=== PATIENT | female | born 1940 | race Caucasian/White ===

== ENCOUNTER 2021-03-15 13:06 | Inpatient (IN) | payer MEDICARE, OTHER, SELFPAY ==
[2021-03-15] VITALS (9 sets, daily range): BP systolic 111–163; BP diastolic 55–85; PULSE 59–88; RESP 15–22; TEMP 36.7–37; O2SAT 94–98; BMI 28.8
--- NOTE | 2021-03-15 13:14 | XRR_ITS ---
PROCEDURE INFORMATION: Exam: XR Right Femur Exam date and time: 03/15/2021 1:14 PM Age: 80 years old Clinical indication: Pain and injury or trauma; Fall; Blunt trauma; Hip and thigh or upper leg; Right TECHNIQUE: Imaging protocol: XR Right femur. Views: 2 views. COMPARISON: No relevant prior studies available. FINDINGS: Bones/joints: There is a comminuted impacted right intertrochanteric femur fracture with varus deformity. Soft tissues: Unremarkable. XR/XR femur RT min 2V* [id number] IMPRESSION: Comminuted intertrochanteric right femur fracture. Radiation Dose CTDIVOL = (mGy): DLP = (mGy-cm)
--- NOTE | 2021-03-15 13:14 | XRR_ITS ---
PROCEDURE INFORMATION: Exam: XR Right Hip Exam date and time: 03/15/2021 1:14 PM Age: 80 years old Clinical indication: Pain and injury or trauma; Fall; Blunt trauma (contusions or hematomas); Hip pain; Right hip; Injury date: 03/15/21; Patient HX: Fell today and landed on RT hip; PT unable to straighten leg; Additional info: Pain, fall TECHNIQUE: Imaging protocol: XR Right hip. Views: 1 view hip with pelvis when performed. COMPARISON: No relevant prior studies available. FINDINGS: Bones/joints: There is a comminuted impacted right intertrochanteric femur fracture with varus deformity. The acetabulum appears intact. Soft tissues: Unremarkable. XR/XR hip RT 2-3V wo/w pel* [id number] IMPRESSION: Comminuted right intertrochanteric femur fracture. Radiation Dose CTDIVOL = (mGy): DLP = (mGy-cm)
--- NOTE | 2021-03-15 13:47 | W.ED.FALL ---
HPI - Fall General: Chief Complaint: Fall Stated Complaint: FALL, R HIP/FEMUR PAIN Time Seen by Provider: 03/15/21 13:07 History of Present Illness: HPI Narrative: 80-year-old female was working outside doing some gardening and cleaning up she stumbled and fell landed on her right side was unable to stand up as severe pain right hip. She denies any loss conscious denies striking her head no other reported injuries. This happened immediately prior to arrival. She arrived via EMS has not been able to stand since the fall. complaint: fall Onset (ago): minute(s) Fall from: standing Fall witnessed: no Place fall occurred: home Loss of consciousness: None Prolonged down time: no Symptoms prior to fall: none Context: tripped/slipped Location of injury: other (Right hip) Severity: severe Associated symptoms-after fall: Reports difficulty walking; Denies abdominal pain, chest pain, confusion, headache(s), hematuria, lightheadedness, neck pain, numbness, short of breath, vertigo or weakness Review of Systems Const: Denies: fever(s), chills, body aches, change in appetite, fatigue or malaise ENMT: Denies: throat pain, ear or mastoid pain, nasal discharge or nasal congestion Card: Denies: chest pain or lightheadedness Resp: Denies: dyspnea, productive cough or non-productive cough GI: Denies: abdominal pain : Denies: hematuria Musc: Denies: neck pain Skin/Breast: Denies: rash or pruritus Neuro: Reports: difficulty walking; Denies: headache(s), vertigo or confusion PFSH ED PFSH: Medical History Afib Hypothyroidism Pacemaker ECG pattern Presence of cardiac pacemaker Skin cancer Surgical History Hx of cholecystectomy Family History Other Hypertension Denies family history of CAD (coronary artery disease) Family history of premature coronary artery disease Social History Smoking and tobacco status: never smoked Alcohol intake: never Substance/Drug Use: never Lives independently: Yes Housing: House Physical Exam Const: COMMON NORMALS: average body habitus, patient oriented x3 and alert GENERAL APPEARANCE: cooperative, comfortable, well kempt and well developed NUTRITIONAL APPEARANCE: obese ORIENTATION/CONSCIOUSNESS: Yes awake, Yes oriented to person and Yes oriented to place HENMT: COMMON NORMALS: normocephalic and atraumatic HEAD & SCALP: normocephalic and atraumatic Neck/C-Spine: COMMON NORMALS: no meningeal signs Lymph: LYMPHATIC: no lymphadenopathy noted Resp: COMMON NORMALS: normal respiratory effort, No retractions, No use of accessory muscles and clear to auscultation bilaterally AUSCULTATION: clear to auscultation bilaterally Cardio: COMMON NORMALS: regular rate and regular rhythm RATE: regular rate RHYTHM: regular rhythm HEART SOUNDS: no murmurs GI: COMMON NORMALS: Normal to inspection, nondistended, normoactive bowel sounds present, Soft to palpation and No hepatosplenomegaly present PALPATION: Yes Soft to palpation and Yes No hepatosplenomegaly present : COMMON NORMALS: Yes no CVA tenderness BLADDER/KIDNEY EXAM: Yes no CVA tenderness Back/Pelvis: COMMON NORMALS: no CVA tenderness LUMBAR SPINE/LOWER BACK: Yes normal to inspection Extremity: COMMON NORMALS: no clubbing, cyanosis or edema, no calf tenderness and no pedal edema OTHER: Severe pain in the right hip cannot tolerate palpation Neuro: COMMON NORMALS: patient oriented x3 SENSORIUM/ORIENTATION: Yes alert, Yes oriented to person and Yes oriented to place MENINGEAL SIGNS: Yes no meningeal signs Psych: APPEARANCE: Yes well kempt Skin: COMMON NORMALS: no rashes or lesions noted and turgor normal GENERAL SKIN EXAM: no rashes or lesions noted and turgor normal Course Vital Signs: Vital signs: Vital Signs Temperature 98.4 F 03/16/21 03:29 Pulse Rate 59 L 03/16/21 03:29 Respiratory Rate 18 03/16/21 08:13 Blood Pressure 125/56 03/16/21 03:29 Pulse Oximetry 95 03/16/21 03:29 MDM - Fall MDM Narrative: Medical decision making narrative: . With hospitalist and with Ortho. Patient is on Xarelto which will delay her surgery. Appropriate preop labs ordered disc orders are written for admission discussed results with the patient as well. Lab Data: Labs: Lab Results 1103/15/21 03/15/21 14:08 14:08 14:08 WBC 5.6 10^3/uL 10^3/ uL (4.0-10.0) RBC 4.09 10^6/uL L 10 ^6/uL (4.1-5.3) Hgb 10.9 g/dL L g/dL (11.5-15.3) Hct 35.0 % L % (37.0-47.0) MCV 85.6 fl fl (81-99) MCH 26.7 pg L pg (28.0-34.0) MCHC 31.1 g/dL g/dL (30.0-36.0) RDW 15.0 % % (12.1-15.1) Plt Count 188 10^3/cmm 10^3 /cmm (130-400) MPV 11.4 fL H fL (7.4-10.4) Neut % (Auto) 82.5 % % Lymph % (Auto) 9.5 % % Louisa % (Auto) 7.0 % % Eos % (Auto) 0.2 % % Baso % (Auto) 0.4 % % Neut # (Auto) 4.59 10^3/uL 10^3 /uL (1.8-7.7) Lymph # (Auto) 0.5 10^3/uL L 10^ 3/uL (0.8-4.8) Louisa # (Auto) 0.4 10^3/uL 10^3/ uL (0.2-0.9) Eos # (Auto) 0.0 10^3/uL 10^3/ uL (0.0-0.8) Baso # (Auto) 0.0 10^3/uL 10^3/ uL (0.0-0.1) Nucleated RBC % (a uto) 0 % % Nucleated RBCs # 0.0 /100WBC /100W BC PT 16.10 SECONDS H S ECONDS (12.1-14.9) INR 1.26 H (0.8-1.2) APTT 24.9 SECONDS SECO NDS (23.9-36.7) Sodium 139 mmol/L mmol/L (136-145) Potassium 3.2 mmol/L L mmol /L (3.5-5.1) Chloride 105 mmol/L mmol/L (98-107) Carbon Dioxide 25 mmol/L mmol/L (22-29) Anion Gap 12.2 (5-19) BUN 14 mg/dL mg/dL (8-23) Creatinine 0.7 mg/dL mg/dL (0.5-0.9) GFR Calculation Not Reportable Glucose 134 mg/dL H mg/dL (65-115) Calculated Osmolal ity 290 mOsm/kg mOsm/ kg (285-295) Calcium 7.9 mg/dL L mg/dL (8.5-10.5) Total Bilirubin 0.3 mg/dL mg/dL (0.15-1.2) AST 15 U/L U/L (0-32) ALT 10 U/L U/L (0-33) Alkaline Phosphata se 61 IU/L IU/L (35-105) Total Protein 5.1 g/dL L g/dL (6.6-8.7) Albumin 3.3 g/dL L g/dL (3.5-5.2) Globulin 1.8 g/dL g/dL (1.3-4.6) Discharge Plan Discharge Patient Disposition: Admitted As Inpatient Admit Provider: Geoffrey Butler Clinical Impression: Hip fracture, Hypokalemia, Pacemaker ECG pattern Condition: Stable Coding Level of Care Code ED Director Of User Experience for Chg Fwd Exam Comprehensive
--- NOTE | 2021-03-15 13:54 | ECG_ITS ---
[facility] Test Date: 2021-03-15 Pat Name: Angelic Lizarraga Department: Room: Gender: Female Departmental Secretary: : 1940 Requested By: Willis Lindo Order Number: [id number] Barby MD: LETTY KENDALL Measurements Intervals [place] Rate: 60 P: 85 [place]: 303 QRS: -50 QRSD: 117 T: -74 QT: 451 QTc: 451 Interpretive Statements ELECTRONIC ATRIAL PACEMAKER LEFT ANTERIOR FASCICULAR BLOCK [QRS AXIS <= -45, QR IN I, RS IN II] ST DEVIATION AND MODERATE T-WAVE ABNORMALITY, CONSIDER ANTEROLATERAL ISCHEMIA [-0.1+ mV T-WAVE IN V3-V6] No previous ECG available for comparison Electronically Signed On 03-15-2021 21:54:48 CDT by LETTY KENDALL [id number]
--- NOTE | 2021-03-15 13:54 | XRR_ITS ---
PROCEDURE INFORMATION: Exam: XR Chest Exam date and time: 03/15/2021 1:54 PM Age: 80 years old Clinical indication: Fall with blunt trauma. Landed on right hip. Dyspnea/cough. TECHNIQUE: Imaging protocol: XR of the chest. Views: 1 view. COMPARISON: CR Chest 2 views* [id number] 05/07/2018 8:19 PM FINDINGS: Tubes, catheters and devices: A left subclavian pacer is noted. Lungs: Probable calcified granuloma in the lung base or in the right hepatic lobe. Opacity at the lateral left base is suspected to reflect a prominent epicardial fat pad. Focal consolidation is difficult to completely exclude. Pleural spaces: No pleural effusion.. No pneumothorax. Heart/Mediastinum: The cardiac silhouette appears more prominent likely reflecting low lung volumes. No gross evidence of pneumomediastinum. Bones/joints: No gross fracture. XR/XR chest 1V portable [id number] IMPRESSION: Opacity at the lateral left base is suspected to reflect a prominent epicardial fat pad. Focal consolidation is difficult to completely exclude. Consider CT to better characterize. Radiation Dose CTDIVOL = (mGy): DLP = (mGy-cm)
[2021-03-15 14:26] LABS: Basophils % 0.4 %; Eosinophils % 0.2 %; Hemoglobin 10.9 g/dL (11.5-15.3); Lymphocytes # 0.5 10^3/uL (0.8-4.8); Lymphocytes % 9.5 %; Mean Corpuscular HGB Conc 31.1 g/dL (30.0-36.0); Mean Corpuscular Hemoglobin 26.7 pg (28.0-34.0); Mean Corpuscular Volume 85.6 fl (81-99); Mean Platelet Volume 11.4 fL (7.4-10.4); Monocytes # 0.4 10^3/uL (0.2-0.9); Neutrophils # 4.59 10^3/uL (1.8-7.7); Neutrophils % 82.5 %; Nucleated Red Blood Cells % 0 %; Platelet Count 188 10^3/cmm (130-400); Red Blood Count 4.09 10^6/uL (4.1-5.3); White Blood Count 5.6 10^3/uL (4.0-10.0)
--- NOTE | 2021-03-15 14:26 | PC.PHAR ---
PT STATES SHE TAKES CARE OF HER OWN MEDICATIONS-PT STATES SHE IS NO LONGER TAKING EZETIMIBE STATES IT MADE HER STOMACH HURT EXT MED HISTORY SHOWS LAST FILLED ON 01/26/21 90D/S
[2021-03-15 14:47] LABS: INR 1.26 (0.8-1.2)
[2021-03-15 14:48] LABS: Partial Thromboplastin Time 24.9 SECONDS (23.9-36.7)
[2021-03-15 14:59] LABS: Alanine Aminotransferase 10 U/L (0-33); Albumin Level 3.3 g/dL (3.5-5.2); Alkaline Phosphatase 61 IU/L (35-105); Anion Gap 12.2 (5-19); Aspartate Amino Transferase 15 U/L (0-32); Blood Urea Nitrogen 14 mg/dL (8-23); Calcium 7.9 mg/dL (8.5-10.5); Carbon Dioxide 25 mmol/L (22-29); Chloride 105 mmol/L (98-107); Globulin 1.8 g/dL (1.3-4.6); Glucose 134 mg/dL (65-115); Osmolality Calculated 290 mOsm/kg (285-295); Potassium 3.2 mmol/L (3.5-5.1); Sodium 139 mmol/L (136-145); Total Bilirubin 0.3 mg/dL (0.15-1.2); Total Protein 5.1 g/dL (6.6-8.7)
[2021-03-15] MEDS: morphine 4 mg/mL SDV 1 mL 6 MG IVP (15:54)
--- NOTE | 2021-03-15 18:23 | P.HP_ITS ---
Providers/Chief Complaint Admitting Physician: Geoffrey Butler MD Primary Care Provider: HELEN Garrett Chief Complaint: FALL, R HIP/FEMUR PAIN History of Present Illness Angelic Lizarraga is a 80 year old female who has history of atrial fibrillation, chronic anticoagulation with Xarelto, pacemaker placement for palpitations, without any history of CHF, AL presented today with chief complaint of sustaining a fall at home. Daughters are at the bedside were endorsing that la nadeem her mother gets tired easily with mild to moderate exertional activities. Today she was cleaning windows when got tired. She was trying to sit in a chair when she lost her balance and fell on the wooden floor. After this fall she could not bear weight on her right leg. EMS was called who brought her to the hospital. In the ER she was diagnosed with right intertrochanteric fracture. Her last Xarelto dose was on 03/14 at 7 PM. No history of seizure, today she did not lose consciousness, she is attributing her falls to losing balance. No recent shortness of breath, palpitations, chest pain, fever. She is vaccinated with moderna COVID-19 vaccine. Status post booster dose as well. Patient is stating that pacemaker battery was replaced 2 years ago, she is not able to tell me clearly why pacemaker was placed, patient is stating that mostly at home her heart rate stayed in 60s Review of Systems Const: Denies: fever(s) Eyes: Denies: change in vision ENMT: Denies: throat pain Card: Denies: chest pain Resp: Denies: dyspnea GI: Denies: abdominal pain : Denies: flank pain Musc: Denies: neck pain Skin/Breast: Denies: rash Neuro: Denies: headache(s) Psych: Denies: anxiety Endo: Denies: polyuria Al/Lymph: Denies: easy bruising All/Imm: Denies: urticaria Medications/Allergies Home Medications Medication Instructions Recorded Confirmed Last Taken Type amiodarone [Pacerone] 200 mg PO QAM 03/15/21 03/15/21 03/15/21 08:00 History carvedilol 12.5 mg PO BID 03/15/21 03/15/21 03/15/21 08:00 History clobetasol 1 applic TOPICAL BID PRN 03/15/21 03/15/21 Unknown History ergocalciferol (vitamin D2) 50,000 unit PO Q7D 03/15/21 03/15/21 03/12/21 History levothyroxine [Euthyrox] 112 mcg PO QAM 03/15/21 03/15/21 03/15/21 History lisinopril 5 mg PO BID 03/15/21 03/15/21 03/15/21 08:00 History rivaroxaban [Xarelto] 15 mg PO BEDTIME 03/15/21 03/15/21 03/14/21 History Allergies Allergy/AdvReac Type Severity Reaction Status Date / Time Unable to Assess Allergy Unverified 03/15/21 14:30 PFSH Acute PFSH: Medical History Afib Hypothyroidism Pacemaker ECG pattern Presence of cardiac pacemaker Skin cancer Surgical History Hx of cholecystectomy Family History Other Hypertension Denies family history of CAD (coronary artery disease) Family history of premature coronary artery disease Social History Smoking and tobacco status: never smoked Alcohol intake: never Substance/Drug Use: never Lives independently: Yes Housing: House Vitals/I&O/Wt Last Vital Signs Temp 98.4 F 03/15/21 16:36 Pulse 60 03/15/21 16:36 Resp 22 H 03/15/21 16:36 BP 134/74 03/15/21 16:36 Pulse Ox 96 03/15/21 16:36 Weight last 48 hrs Weight 86.183 kg Physical Exam Narrative: EXAM NARRATIVE: Patient laying supine Saturating well on room air Right leg shortened as compared to left No vascular compromise of right leg Limited range of motion Variable S1-S2 bradycardia heart rate consistently at 60s blood pressure 158/65 mmHg EOMI, PERRLA Appropriate mood and affect Looks dehydrated Abdomen soft Nonfocal neuro exam No audible stridor or wheezing Data : 03/15/21 14:08 03/15/21 14:08 A&P Assessment and plan (1) Hip fracture: Status: Acute (2) Pacemaker ECG pattern: Status: Acute (3) Hypokalemia: Status: Acute Additional A&P Information Right comminuted intertrochanteric hip fracture Last Xarelto dose on 03/14 at 7 PM No previous history of AL, CHF or coronary disease History of atrial fibrillation status post pacemaker placement, currently heart rate in 60s, Looking at the EKG it seems like she is pacemaker dependent, she is at risk of perioperative complications related to bradycardia despite use of pacemaker, would recommend pacemaker interrogation before surgery, patient seems to be fairly active for her age, she is able to take care of her daily activities, there is component of fatigue, will check TSH We will request echo before surgery RCRI class I risk however because of pacemaker dependency, recommended pacemaker evaluation Patient is stating that battery was replaced 2 years ago N.p.o. after midnight SCDs DVT prophylaxis We will keep her on IV fluids for now Dilaudid with bowel regimen for now Full code Attestations Medical Necessity Statement*: Anticipating more than 2 midnights in the hospital Time Spent in Patient Care: Greater than 35 minutes Coding Level of Care Code Acute Community Life Director for Chg Fwd Diagnoses Hip fracture S72.009A Pacemaker ECG pattern Z95.0 Hypokalemia E87.6
[2021-03-15] MEDS: HYDROmorphone 1 mg/mL INJ 1 mL 0.5 MG IVP (19:43)
--- NOTE | 2021-03-15 20:39 | PC.NURSE ---
called and gave report to the nurse.
[2021-03-15 21:01] LABS: Troponin(5th) Baseline 18 ng/L (0-10)
--- NOTE | 2021-03-15 21:31 | ECG_ITS ---
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: : 1940 Requested By: Geoffrey Butler Order Number: [id number] Reading MD: GEOFFREY KENDALL Measurements Intervals [place] Rate: 60 P: 132 [place]: 331 QRS: -44 QRSD: 110 T: 251 QT: 432 QTc: 432 Interpretive Statements ELECTRONIC ATRIAL PACEMAKER LEFT AXIS DEVIATION [QRS AXIS < -30] MODERATE INTRAVENTRICULAR CONDUCTION DELAY [105+ ms QRS DURATION, 80+ ms Q/S IN V1/V2, NO Q AND 60+ ms R IN I/aVL/V5/V6] ST DEVIATION AND MODERATE T-WAVE ABNORMALITY, CONSIDER ANTEROLATERAL ISCHEMIA [-0.1+ mV T-WAVE IN V3-V6] Compared to ECG 03/15/2021 16:26:39 Left-axis deviation now present Intraventricular conduction delay now present Left anterior fascicular block no longer present T-wave abnormality still present Possible ischemia still present Electronically Signed On 03-15-2021 21:57:52 CDT by GEOFFREY KENDALL [id number]
[2021-03-15] MEDS: dextrose 5%-sod chloride 0.45% 1,000 ML 30 ML IV (21:33)
[2021-03-15] MEDS: morphine 4 mg/mL SDV 1 mL IVP (21:34)
--- NOTE | 2021-03-15 21:38 | PC.NURSE ---
ivp prn morphine for primary nurse, see mar
[2021-03-15 21:44] LABS: Thyroid Stimulating Hormone 0.56 uIU/mL (0.27-4.20)
--- NOTE | 2021-03-15 21:55 | PC.NURSE ---
ADMIT NOTE Pt received to zoya from ER at 2051. Alert and oriented. Moving to bed caused alot of pain. Morphine IV given as soon as in from pharmacy. Tells me she missed her chair when sitting down and fell. Shortening of right leg noted and some swelling of the hip. Denies numbness/tingling of extremity. Pedal pulse present. Marquis in place from ER and draining well. Will be NPO after midnight for OR tomorrow. IV fluids started. Daughter was told by ER nurse that she could stay but explained COVID policy in effect so she left. Will return in am. Given direct phone # to call anytime for update
[2021-03-15 22:41] LABS: Troponin 5 2HR 17.99 ng/L (0-10)
[2021-03-15 22:44] LABS: Troponin 5 2HR Delta -0.01 ABS# (0-10)
[2021-03-16] VITALS (14 sets, daily range): BP systolic 125–156; BP diastolic 56–75; PULSE 59–60; RESP 16–20; TEMP 36.5–37.4; O2SAT 91–95
--- NOTE | 2021-03-16 01:31 | ECG_ITS ---
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 Measurements Intervals [place] Rate: 62 P: 105 [place]: 347 QRS: -40 QRSD: 123 T: -22 QT: 508 QTc: 516 Interpretive Statements ELECTRONIC ATRIAL PACEMAKER LEFT AXIS DEVIATION [QRS AXIS < -30] MODERATE INTRAVENTRICULAR CONDUCTION DELAY [105+ ms QRS DURATION, 80+ ms Q/S IN V1/V2, NO Q AND 60+ ms R IN I/aVL/V5/V6] ST DEVIATION AND MODERATE T-WAVE ABNORMALITY, CONSIDER ANTEROLATERAL ISCHEMIA [-0.1+ mV T-WAVE IN V3-V6] Compared to ECG 03/15/2021 21:15:19 No significant changes Electronically Signed On 03-16-2021 22:18:03 CDT by Karen Mccall M.D. [id number]
[2021-03-16] MEDS: morphine 4 mg/mL SDV 1 mL IVP ×5 (02:00→20:02)
[2021-03-16 02:31] LABS: Basophils % 0.4 %; Eosinophils % 0.2 %; Hemoglobin 9.6 g/dL (11.5-15.3); Lymphocytes # 0.9 10^3/uL (0.8-4.8); Lymphocytes % 18.9 %; Mean Corpuscular Hemoglobin 26.3 pg (28.0-34.0); Mean Corpuscular Volume 84.9 fl (81-99); Mean Platelet Volume 11.2 fL (7.4-10.4); Monocytes # 0.5 10^3/uL (0.2-0.9); Monocytes % 11.7 %; Neutrophils # 3.15 10^3/uL (1.8-7.7); Neutrophils % 68.4 %; Nucleated Red Blood Cells % 0 %; Platelet Count 165 10^3/cmm (130-400); Red Blood Count 3.65 10^6/uL (4.1-5.3); Red Cell Distribution Width 15.2 % (12.1-15.1); White Blood Count 4.6 10^3/uL (4.0-10.0)
[2021-03-16 02:49] LABS: Troponin 5 6HR 14.71 ng/L (0-10)
[2021-03-16 02:51] LABS: Alanine Aminotransferase 8 U/L (0-33); Albumin Level 3.1 g/dL (3.5-5.2); Alkaline Phosphatase 55 IU/L (35-105); Anion Gap 11.5 (5-19); Aspartate Amino Transferase 11 U/L (0-32); Blood Urea Nitrogen 15 mg/dL (8-23); Calcium 7.8 mg/dL (8.5-10.5); Carbon Dioxide 26 mmol/L (22-29); Chloride 106 mmol/L (98-107); Globulin 1.6 g/dL (1.3-4.6); Glucose 134 mg/dL (65-115); Osmolality Calculated 293 mOsm/kg (285-295); Potassium 3.5 mmol/L (3.5-5.1); Sodium 140 mmol/L (136-145); Total Bilirubin 0.3 mg/dL (0.15-1.2); Total Protein 4.7 g/dL (6.6-8.7)
[2021-03-16 02:55] LABS: Troponin 5 6HR Delta -3.29 ng/L (0-12)
--- NOTE | 2021-03-16 05:59 | PC.NURSE ---
SHIFT SUMMARY Has been medicated q4h with IV Morphine for R hip pain. Has relieved the pain and has slept. NPO after midnight for OR this am. IV fluids infusing at 30ml/hr rate. Have attempted several times to do pacemaker eval but will not connect. 3 nurses tried with same result.
--- NOTE | 2021-03-16 06:00 | USCV_ITS ---
Angelic Lizarraga Age: 80 Gender: F : 1940 Exam Date: 03/16/2021 06:29 Ordering Phys: Geoffrey Butler MD Technologist: Rubia Champion Exam Location: [facility] [place] Indication: PRE OP BP: 125 / 56 HR: 59 Rhythm: Sinus Technical Quality: Technically difficult study. PT HAS BROKEN HIP MEASUREMENTS (Male / Female) Normal Values 2D ECHO LV Diastolic Diameter PLAX 4.4 cm 4.2 - 5.9 / 3.9 - 5.3 cm LV Systolic Diameter PLAX 3.1 cm IVS Diastolic Thickness 1.3 cm 0.6 - 1.0 / 0.6 - 0.9 cm IVS Systolic Thickness 1.9 cm LVPW Diastolic Thickness 1.1 cm 0.6 - 1.0 / 0.6 - 0.9 cm LVPW Systolic Thickness 1.7 cm LVOT Diameter 2.0 cm LV Ejection Fraction 2D Teich 57.1 % LA Diameter 3.2 cm Aorta at Sinotubular Diameter 2.9 cm DOPPLER AV Peak Velocity 112.0 cm/s LVOT Peak Velocity 59.0 cm/s AV Area Cont Eq vti 2.0 cm squared AV Area Cont Eq pk 1.7 cm squared MV Area PHT 4.1 cm squared Mitral E to A Ratio 1.1 MV E' Velocity 32.5 cm/s Mitral E to MV E' Ratio 6.7 Mitral E to LV E' Lateral Ratio 6.3 Mitral E to LV E' Septal Ratio 7.1 TR Peak Velocity 269.0 cm/s TR Peak Gradient 28.9 mmHg Right Atrial Pressure 3.0 mmHg Pulmonary Artery Systolic Pressu 31.9 mmHg PV Peak Velocity 134.0 cm/s RV Acceleration Time 0.1 s RV Ejection Time 0.3 s RV AcT/ET 0.2 FINDINGS Left Ventricle Normal left ventricular size. LV systolic function is normal with EF of 50-55%. No regional wall motion abnormalities. Normal diastolic filling pattern. Right Ventricle The right ventricle is normal in size and function. Right Atrium The right atrium is normal in size. Left Atrium The left atrium is normal in size. Mitral Valve Structurally normal mitral valve without significant stenosis or prolapse. There is trace mitral regurgitation. Aortic Valve Structurally normal aortic valve without significant sclerosis or stenosis. There is no aortic regurgitation. Tricuspid Valve Structurally normal tricuspid valve without significant stenosis. Mild tricuspid regurgitation. Pulmonary artery systolic pressure is normal. Pulmonic Valve Structurally normal pulmonic valve without significant stenosis. There is mild pulmonic regurgitation. Pericardium Normal pericardium without effusion. Aorta Normal ascending aorta dimension. CONCLUSIONS LV systolic function is normla with EF of 50-55% Diastolic function is normal Trace mitral regurgitation Mild tricuspid regurgitation Mild pulmonary hypertension No comparison studies are available Laureano Velez MD (Electronically Signed) Final Date: 16 March 2021 08:10 S
--- NOTE | 2021-03-16 07:51 | PC.NURSE ---
AM NOTE NOTED RIGHT LEG SHORTENED AND ROTATED - WILL MONITOR
[2021-03-16] MEDS: HYDROmorphone 1 mg/mL INJ 1 mL 0.4 MG IVP (08:13)
[2021-03-16] MEDS: oxyCODONE 5 mg IR Tab/Cap PO ×2 (09:07→13:41)
--- NOTE | 2021-03-16 09:22 | P.CONIM_ITS ---
Documented by User: HARDY Bird 03/16/21 09:28 Providers/Reason For Consult Consulting Physician/Specialty*: Orthopedics Reason for Consult*: Right hip pain Attending Physician: Geoffrey Butler MD Primary Care Provider: HELEN Garrett History of Present Illness History of Present Illness Angelic Lizarraga is a 80 year old female who presented to [facility] emergency room with right hip pain. X-rays confirmed a right hip fracture she was admitted for more definitive care. Orthopedics was consulted for her injury. Evaluation in room 273 with no family present she was complaining of continued right hip pain that is been constant sharp stabbing in nature any movement makes it much worse rest gives her some temporary relief. She fell at her residence by missing a chair landing on her right hip. She denied any loss of consciousness in the fall. Pain has been sharp stabbing constant nature. Ranks it as 7 out of 10 on the pain scale. Describes spasming pain localized to the right hip and leg. Denies any back pain denies any neck pain denies any arm or wrist pain. Review of Systems Const: Denies: fever(s), chills, body aches, change in appetite, fatigue or malaise Eyes: Denies: change in vision ENMT: Denies: throat pain, ear or mastoid pain, nasal discharge or nasal congestion Card: Denies: chest pain or lightheadedness Resp: Denies: dyspnea, productive cough or non-productive cough GI: Denies: abdominal pain : Denies: flank pain or hematuria Musc: Denies: neck pain Skin/Breast: Denies: rash or pruritus Neuro: Reports: difficulty walking; Denies: headache(s), vertigo or confusion Psych: Denies: anxiety Endo: Denies: polyuria Al/Lymph: Denies: easy bruising All/Imm: Denies: urticaria Meds/Allergies Home Medications and Allergies Home Medications Medication Instructions Recorded Confirmed Last Taken Type amiodarone [Pacerone] 200 mg PO QAM 03/15/21 03/15/21 03/15/21 08:00 History carvedilol 12.5 mg PO BID 03/15/21 03/15/21 03/15/21 08:00 History clobetasol 1 applic TOPICAL BID PRN 03/15/21 03/15/21 Unknown History ergocalciferol (vitamin D2) 50,000 unit PO Q7D 03/15/21 03/15/21 03/12/21 History levothyroxine [Euthyrox] 112 mcg PO QAM 03/15/21 03/15/21 03/15/21 History lisinopril 5 mg PO BID 03/15/21 03/15/21 03/15/21 08:00 History rivaroxaban [Xarelto] 15 mg PO BEDTIME 03/15/21 03/15/21 03/14/21 History Allergies Allergy/AdvReac Type Severity Reaction Status Date / Time Unable to Assess Allergy Unverified 03/15/21 14:30 Current Medications Current Medications Generic Name Dose Route Start Last Admin Trade Name Freq PRN Reason Stop Dose Admin Hydromorphone HCl 0.4 mg 03/15/21 20:56 03/16/21 08:13 Hydromorphone 1 Mg/Ml Inj 1 Ml IVP 0.4 mg Q4H PRN Administration pain Dextrose/Sodium Chloride 1,000 mls @ 30 mls/hr 03/15/21 20:56 03/15/21 21:33 Dextrose 5%-Sod Chloride 0.45% IV 30 mls/hr .Q24H DILLON Administration Levothyroxine Sodium 112 mcg 03/16/21 06:00 03/16/21 08:03 Levothyroxine 112 Mcg Tablet PO Not Given QAM DILLON Morphine Sulfate 4 mg 03/15/21 20:56 03/16/21 05:38 Morphine 4 Mg/Ml Sdv 1 Ml IVP 4 mg Q4H PRN Administration SEVERE PAIN Oxycodone HCl 5 mg 03/16/21 08:30 03/16/21 09:07 Oxycodone 5 Mg Ir Tab/Cap PO 5 mg Q6H DILLON Administration Senna/Docusate Sodium 1 tab 03/16/21 09:00 03/16/21 08:17 Sennosides-Docusate Tablet PO Not Given DAILY DILLON PFSH Acute PFSH: Medical History Afib Hypothyroidism Pacemaker ECG pattern Presence of cardiac pacemaker Skin cancer Surgical History Hx of cholecystectomy Family History Other Hypertension Denies family history of CAD (coronary artery disease) Family history of premature coronary artery disease Social History Smoking and tobacco status: never smoked Alcohol intake: never Substance/Drug Use: never Lives independently: Yes Housing: House Vitals/I&O/Wt Last Vital Signs Temp 98.4 F 03/16/21 03:29 Pulse 59 L 03/16/21 03:29 Resp 18 03/16/21 09:07 BP 125/56 03/16/21 03:29 Pulse Ox 95 03/16/21 03:29 03/15/21 03/16/21 03/16/21 22:59 06:59 14:59 Intake Total 200 / 200 Output Total 350 / 350 Balance -150 / -150 Weight last 48 hrs Weight 190 lb Weight 190 lb Physical Exam Narrative: EXAM NARRATIVE: She is alert oriented x3 she has good general appearance normal normal affect appears to be resting comfortably. She has obvious external rotation of the right hip she has positive logroll on the right. Normal station light touch down both lower extremities skin is clear warm fairly good cap refill calves are supple no medial thigh tenderness. Toes are warm dorsalis pedis posterior pulses are palpable. Negative logroll on the left full range of motion of the left lower extremity at the hip knee and ankle. No palpable pain in the lumbar thoracic or cervical spine full range in both upper extremities hands warm good cap refill radial pulses are palpable. Const: COMMON NORMALS: patient oriented x3 HENMT: COMMON NORMALS: normocephalic HEAD & SCALP: normocephalic Resp: COMMON NORMALS: normal respiratory effort Cardio: COMMON NORMALS: regular rate and regular rhythm RATE: regular rate RHYTHM: regular rhythm GI: COMMON NORMALS: Soft to palpation PALPATION: Yes Soft to palpation : COMMON NORMALS: Yes no CVA tenderness BLADDER/KIDNEY EXAM: Yes no CVA tenderness Back/Pelvis: COMMON NORMALS: no CVA tenderness Neuro: COMMON NORMALS: patient oriented x3 Psych: COMMON NORMALS: cooperative Urinary Catheter Management^: Marquis: Cath Placed During This Visit: no Reason for Continuing Indwelling Catheter: Required Immobilization for Trauma or Surgery or Anesthesia A&P Assessment and plan (1) Intertrochanteric fracture of right hip: Will await for medical clearance proceed with open reduction internal fixation of right hip. We will keep her n.p.o. after midnight for fixation on 03/17/2021. Explained the risks the benefits of the procedure was cooled limited to bleeding fixator damage continued hip pain need for surgery X and seizure she understands his risk and wishes to proceed. 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 [facility] Fwd Exam Detailed Diagnoses Intertrochanteric fracture of right hip S72.141A Documented by User: Jacob Olvera DO 03/16/21 10:32 Meds/Allergies Home Medications and Allergies Home Medications Medication Instructions Recorded Confirmed Last Taken Type amiodarone [Pacerone] 200 mg PO QAM 03/15/21 03/15/21 03/15/21 08:00 History carvedilol 12.5 mg PO BID 03/15/21 03/15/21 03/15/21 08:00 History clobetasol 1 applic TOPICAL BID PRN 03/15/21 03/15/21 Unknown History ergocalciferol (vitamin D2) 50,000 unit PO Q7D 03/15/21 03/15/21 03/12/21 History levothyroxine [Euthyrox] 112 mcg PO QAM 03/15/21 03/15/21 03/15/21 History lisinopril 5 mg PO BID 03/15/21 03/15/21 03/15/21 08:00 History rivaroxaban [Xarelto] 15 mg PO BEDTIME 03/15/21 03/15/21 03/14/21 History Allergies Allergy/AdvReac Type Severity Reaction Status Date / Time Unable to Assess Allergy Unverified 03/15/21 14:30 PFSH Acute PFSH: Medical History Afib Hypothyroidism Pacemaker ECG pattern Presence of cardiac pacemaker Skin cancer Surgical History Hx of cholecystectomy Family History Other Hypertension Denies family history of CAD (coronary artery disease) Family history of premature coronary artery disease Social History Smoking and tobacco status: never smoked Alcohol intake: never Substance/Drug Use: never Lives independently: Yes Housing: House Physical Exam Urinary Catheter Management^: Marquis: Cath Placed During This Visit: no A&P Assessment and plan (1) Intertrochanteric fracture of right hip: I had an open and honest discussion with the patient about the risks, benefits and alternatives to both surgical and nonsurgical treatment. The patient verbalized understanding of the inherent unpredictability associated with surgery. Risk of surgery were discussed including, but not limited to, infection, bleeding, temporary and permanent nerve damage, continued pain, stiffness, incomplete healing, need for revision surgery, blood clot and other complications. The patient verbalized understanding that there is spine is elective in nature and if they find any of these risks to be unacceptable then they should choose not to have the surgery. The patient verbalized understanding of these risks and elected to proceed with the surgery. Discussed this with pt and the daughter will plan on surgery in AM. 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
--- NOTE | 2021-03-16 15:33 | PM.PN ---
Subjective Subjective: Interval history: pt is complaing of leg pain, opioid regimen has been adjusted this morning She got 1 dose of dilaudid after morphine overnight Surgery tomorrow am PM interrogation today Echo: Preserved EF, no wall motion defect Vitals/I&O/Wt Last Vital Signs Temp 97.7 F 03/16/21 15:00 Pulse 60 03/16/21 15:00 Resp 20 H 03/16/21 15:00 BP 146/66 03/16/21 15:00 Pulse Ox 94 03/16/21 15:00 03/16/21 03/16/21 03/16/21 06:59 14:59 22:59 Intake Total 200 / 200 Output Total 350 / 350 Balance -150 / -150 Weight last 48 hrs Weight 86.183 kg Weight 86.183 kg Physical Exam Narrative: EXAM NARRATIVE: patient was lying supine in distress with her hand on right hip S1, S2 sinus bradycardia No active signs of heart failure No active chest pain No audible stridor or wheezing Family at the bedside Nonfocal neuro exam Marquis catheter draining concentrated urine Lower extremity are warm without any vascular compromise right leg is shortened and rotated outwards Urinary Catheter Management^: Marquis: Cath Placed During This Visit: no Reason for Continuing Indwelling Catheter: Required Immobilization for Trauma or Surgery or Anesthesia Data : 03/16/21 01:50 03/16/21 01:50 A&P Assessment and plan (1) Pacemaker ECG pattern: Status: Acute (2) Intertrochanteric fracture of right hip: Status: Acute (3) Hypokalemia: Status: Acute (4) Hip fracture: Status: Acute Additional A&P Information Preop clearance: Echo reveals preserved ejection fraction no valvular abnormality no wall motion abnormality No active chest pain Sinus bradycardia noted on telemetry Blood pressure stable Stop amiodarone and Coreg No follow-up with pacemaker interrogation Okay to proceed with surgery tomorrow morning N.p.o. 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
[2021-03-17] VITALS (32 sets, daily range): BP systolic 99–149; BP diastolic 49–74; PULSE 59–62; RESP 14–32; TEMP 36.1–38.3; O2SAT 91–100
--- NOTE | 2021-03-17 | XR_ITS ---
WS: [id number] Right hip, C-arm fluoroscopy, 03/17/2021 Clinical Data: gamma nail Comparison: Right hip, 03/15/2021. Findings: A right hip nail and proximal right intertrochanteric mathew are reducing the right hip fracture. XR/XR hip RT 2-3V wo/w pel* [id number] Impression: Internal fixation of intertrochanteric right hip fracture.
--- NOTE | 2021-03-17 | SCC_ITS ---
Procedure Done: Right IM hip nail 93 seconds of fluoroscopic guidance, for a cumulative dose of 27.31 mGy, was provided to Dr. Olvera by the radiology department. C-arm images of the right hip were saved for the patient's permanent record. [facility]
[2021-03-17] MEDS: oxyCODONE 5 mg IR Tab/Cap PO ×4 (02:22→23:29)
[2021-03-17] MEDS: morphine 4 mg/mL SDV 1 mL IVP ×2 (05:31)
[2021-03-17] MEDS: dextrose 5%-sod chloride 0.45% 1,000 ML 30 ML IV ×2 (05:53→20:14)
[2021-03-17 06:33] LABS: Anion Gap 11.5 (5-19); Blood Urea Nitrogen 11 mg/dL (8-23); Calcium 7.7 mg/dL (8.5-10.5); Carbon Dioxide 27 mmol/L (22-29); Chloride 104 mmol/L (98-107); Glucose 121 mg/dL (65-115); Magnesium 1.9 mg/dL (1.7-2.3); Osmolality Calculated 289 mOsm/kg (285-295); Potassium 3.5 mmol/L (3.5-5.1); Sodium 139 mmol/L (136-145)
--- NOTE | 2021-03-17 06:35 | ANES.PREANE2 ---
Pre-Anesthetic Assessment Pre-Anesthetic Assessment: Height/Weight: Height 1.73 m Weight 86.183 kg Temp Pulse Resp BP Pulse Ox 97.4 F L 60 15 142/56 94 03/17/21 06:27 03/17/21 06:27 03/17/21 06:27 03/17/21 06:27 03/17/21 06:27 Preop Diagnosis: Hip fracture Proposed Procedure: Operation Date: 03/17/21 07:00 Proposed Procedures p Trochanteric Femoral Nail(Right) - Jacob Olvera, DO Familial anesthetic complications: None Was Beta Tavo taken within 24 hours: N/A Was Clonidine taken within 24 hours: N/A Last intake: Intake Last Liquid Date 03/16/21 Last Liquid Time 23:45 Last Solid Date 03/16/21 Last Solid Time 12:00 Social: Social History: No alcohol and No tobacco Exam: Pre-Anes Outpt Exam: alert, oriented x 3, clear to auscultation bilaterally and regular rate & rhythm Additional Exam Findings (including area of procedure): Pacemaker Airway: Cervical ROM: WNL MP: 1 Dentition: False CV/HEM: CV/HEM: Afib Comments: Pacemaker for A fib Echo CONCLUSIONS LV systolic function is normla with EF of 50-55% Diastolic function is normal Trace mitral regurgitation Mild tricuspid regurgitation Mild pulmonary hypertension No comparison studies are available Anesthetic Plan: ASA status: 4 Anesthesia: General Risk of > 500 ml blood loss (7ml/kg in children): No Meds/Allergies Current Medications: Current Medications Generic Name Dose Route Start Last Admin Trade Name Freq PRN Reason Stop Dose Admin Dextrose/Sodium Ch loride 1,000 mls @ 30 ml s/hr 03/15/21 20:56 03/17/21 05:53 Dextrose 5%-Sod Chloride 0.45% IV 30 mls/hr .Q24H DILLON Administration Levothyroxine Sodi um 112 mcg 03/16/21 06:00 03/17/21 06:13 Levothyroxine 11 2 Mcg Tablet PO Not Given QAM DILLON Morphine Sulfate 4 mg 03/15/21 20:56 03/17/21 05:31 Morphine 4 Mg/Ml Sdv 1 Ml IVP 4 mg Q4H PRN Administration SEVERE PAIN Oxycodone HCl 5 mg 03/16/21 08:30 03/17/21 02:22 Oxycodone 5 Mg I r Tab/Cap PO 5 mg Q6H DILLON Administration Senna/Docusate Sod ium 1 tab 03/16/21 09:00 03/16/21 08:17 Sennosides-Docus ate Tablet PO Not Given DAILY DILLON PFSH Anesthesia PFSH: Medical History Afib Hypothyroidism Pacemaker ECG pattern Presence of cardiac pacemaker Skin cancer Surgical History Hx of cholecystectomy Family History Other Hypertension Denies family history of CAD (coronary artery disease) Family history of premature coronary artery disease Social History Smoking and tobacco status: never smoked Alcohol intake: never Substance/Drug Use: never Lives independently: Yes Housing: House Data Anesthesia CBC & Chem 7: 03/16/21 01:50 03/17/21 05:30 Other Labs: Laboratory Results - last 48 hr 03/15/21 03/15/21 03/15/21 14:08 14:08 14:08 WBC 5.6 RBC 4.09 L Hgb 10.9 L Hct 35.0 L MCV 85.6 MCH 26.7 L MCHC 31.1 RDW 15.0 Plt Count 188 MPV 11.4 H Neut % (Auto) 82.5 Lymph % (Auto) 9.5 [place] % (Auto) 7.0 Eos % (Auto) 0.2 Baso % (Auto) 0.4 Neut # (Auto) 4.59 Lymph # (Auto) 0.5 L [place] # (Auto) 0.4 Eos # (Auto) 0.0 Baso # (Auto) 0.0 Nucleated RBC % (auto) 0 Nucleated RBCs # 0.0 PT 16.10 H INR 1.26 H APTT 24.9 Sodium 139 Potassium 3.2 L Chloride 105 Carbon Dioxide 25 Anion Gap 12.2 BUN 14 Creatinine 0.7 GFR Calculation Not Reportable Glucose 134 H Calculated Osmolality 290 Calcium 7.9 L Magnesium Total Bilirubin 0.3 AST 15 ALT 10 Alkaline Phosphatase 61 Troponin T Baseline Troponin T 120 Minute Delta Troponin T Troponin T Hi Sens 6Hr Troponin T Hi Sens 6Hr Delta Total Protein 5.1 L Albumin 3.3 L Globulin 1.8 TSH 03/15/21 03/15/21 03/15/21 20:18 20:18 22:00 WBC RBC Hgb Hct MCV MCH MCHC RDW Plt Count MPV Neut % (Auto) Lymph % (Auto) [place] % (Auto) Eos % (Auto) Baso % (Auto) Neut # (Auto) Lymph # (Auto) [place] # (Auto) Eos # (Auto) Baso # (Auto) Nucleated RBC % (auto) Nucleated RBCs # PT INR APTT Sodium Potassium Chloride Carbon Dioxide Anion Gap BUN Creatinine GFR Calculation Glucose Calculated Osmolality Calcium Magnesium Total Bilirubin AST ALT Alkaline Phosphatase Troponin T Baseline 18 H Troponin T 120 Minute 17.99 H Delta Troponin T -0.01 L Troponin T Hi Sens 6Hr Troponin T Hi Sens 6Hr Delta Total Protein Albumin Globulin TSH 0.56 03/16/21 03/16/21 03/16/21 01:50 01:50 01:50 WBC 4.6 RBC 3.65 L Hgb 9.6 L Hct 31.0 L MCV 84.9 MCH 26.3 L MCHC 31.0 RDW 15.2 H Plt Count 165 MPV 11.2 H Neut % (Auto) 68.4 Lymph % (Auto) 18.9 [place] % (Auto) 11.7 Eos % (Auto) 0.2 Baso % (Auto) 0.4 Neut # (Auto) 3.15 Lymph # (Auto) 0.9 [place] # (Auto) 0.5 Eos # (Auto) 0.0 Baso # (Auto) 0.0 Nucleated RBC % (auto) 0 Nucleated RBCs # 0.0 PT INR APTT Sodium 140 Potassium 3.5 Chloride 106 Carbon Dioxide 26 Anion Gap 11.5 BUN 15 Creatinine 0.7 GFR Calculation Not Reportable Glucose 134 H Calculated Osmolality 293 Calcium 7.8 L Magnesium Total Bilirubin 0.3 AST 11 ALT 8 Alkaline Phosphatase 55 Troponin T Baseline Troponin T 120 Minute Delta Troponin T Troponin T Hi Sens 6Hr 14.71 H Troponin T Hi Sens 6Hr Delta -3.29 L Total Protein 4.7 L Albumin 3.1 L Globulin 1.6 TSH 03/17/21 05:30 WBC RBC Hgb Hct MCV MCH MCHC RDW Plt Count MPV Neut % (Auto) Lymph % (Auto) [place] % (Auto) Eos % (Auto) Baso % (Auto) Neut # (Auto) Lymph # (Auto) [place] # (Auto) Eos # (Auto) Baso # (Auto) Nucleated RBC % (auto) Nucleated RBCs # PT INR APTT Sodium 139 Potassium 3.5 Chloride 104 Carbon Dioxide 27 Anion Gap 11.5 BUN 11 Creatinine 0.7 GFR Calculation Not Reportable Glucose Calculated Osmolality 289 Calcium Magnesium 1.9 Total Bilirubin AST ALT Alkaline Phosphatase Troponin T Baseline Troponin T 120 Minute Delta Troponin T Troponin T Hi Sens 6Hr Troponin T Hi Sens 6Hr Delta Total Protein Albumin Globulin TSH Cardiac Studies: Echocardiogram 03/16/21
--- NOTE | 2021-03-17 06:48 | W.PM.OPSUD ---
Surgery/Procedure H&P Update DATE OF PROCEDURE: March 17, 2021 DATE H&P PERFORMED: 03/16/21 H&P UPDATE INFORMATION: I have reviewed H&P completed within last 30 days, I have examined patient prior to procedure and No changes to prior documentation PREOP DIAGNOSIS: Hip fracture PLANNED PROCEDURE: Operation Date: 03/17/21 07:00 Proposed Procedures p Trochanteric Femoral Nail(Right) - Jacob Olvera DO
[2021-03-17] MEDS: sodium chloride 0.9% 1,000 ML 30 ML IV (07:02)
--- NOTE | 2021-03-17 07:06 | PC.NURSE ---
AM NOTE PT OFF FLOOR UPON ARRIVAL TO ROOM PER THIS NURSE
--- NOTE | 2021-03-17 07:57 | PM.OP ---
Operative Report Date of procedure: March 17, 2021 Pre-op Diagnosis: right Intertrochanteric hip fracture Post-op diagnosis: same Procedure Done: Right IM hip nail Surgeon: Jacob Olvera Repair Weaver: Abdi Martel Repair Weaver: Adbi Martel was required to help with placing the nail. He was required to get the case done in a timely manner. He helped position the patient as well close the wound. Anesthesia: General Estimated blood loss (mL): 5 Condition: stable Disposition: PACU Procedure: 1. Right intramedullary nail. Patient was brought to the operative suite after undergoing anesthesia was placed onto the [place] table. All areas impingement were well-padded. Traction was applied through the leg and the fracture was reduced. AP and lateral fluoroscopy were taken to ensure the fracture was adequately reduced. Once is traction was completed then the leg was prepped and draped normal sterile fashion. Skin incision was made proximal to the greater trochanter. Starting pin was inserted opening reamer was inserted and the intramedullary nail was inserted. Screws placed up into the femoral head. In the center center position on AP and lateral fluoroscopy. This compressed 5 mm and then the locking bolt proximally was locked. Next attention was brought to the distal locking screw a 40 mm screw was placed through the nail through the femur. AP lateral fluoroscopy ensured the fracture and hardware in 4 positions.
[2021-03-17] MEDS: ondansetron 2 mg/ML SDV 2 mL 4 MG IVP ×2 (08:18→08:36)
[2021-03-17] MEDS: fentaNYL 50 mcg/mL INJ 2mL IVP (08:19)
--- NOTE | 2021-03-17 09:06 | PC.NURSE ---
OR NOTE UP VIA BED WITH ANTWON JAY AT [facility] - 02 PLACED ON AT 2LNC - PT AROUSES TO VERBAL STIMULI AND COMPLAINS OF RIGHT HIP PAIN - DAUGHTER AT [facility] - AP RRR - LUNGS CTA THROUGHOUT WITH ABD SOFT BS PRESENT - IV PATENT VIA PUMP TO RIGHT FA WITH RIGHT WRIST PIID INTACT - SALAS DRAINING YELLOW URINE - BULKY RIGHT HIP DRESSING NOTED TO BE C/D/I WITH 1ST ICE IN PLACE - RIGHT FOOT PUMP IN PLACE - LEFT SCD IN PLACE - VSS
[2021-03-17] MEDS: morphine 4 mg/mL SDV 1 mL 2 MG IVP ×3 (09:24→23:42)
--- NOTE | 2021-03-17 12:59 | P.PN_ITS ---
Subjective Subjective: Interval history: Patient was seen and examined this morning, postoperative no complications, pain under control, would like to use morphine along oxycodone, patient is stating that she would not like to use Dilaudid for now, No complications during surgery, Family wants inpatient rehab at [facility], case sealer updated Vitals/I&O/Wt Last Vital Signs Temp 97.6 F 03/17/21 12:00 Pulse 60 03/17/21 12:00 Resp 18 03/17/21 12:05 BP 124/60 03/17/21 12:00 Pulse Ox 100 03/17/21 12:00 03/16/21 03/17/21 03/17/21 22:59 06:59 14:59 Intake Total 240 / 240 1060 / 1300 260 / 260 Output Total 300 / 300 410 / 710 40 / 40 Balance -60 / -60 650 / 590 220 / 220 Weight last 48 hrs Weight 86.183 kg Weight 86.183 kg Physical Exam Narrative: EXAM NARRATIVE: Postoperative, patient is able to follow commands Complaining of moderate pain S1, S2 variable, heart rate in 60s Blood pressure stable Nonfocal neuro exam No audible stridor or wheezing, postop on 2 L nasal cannula Urinary Catheter Management^: Marquis: Cath Placed During This Visit: no Reason for Continuing Indwelling Catheter: Perioperative Use in Selected Surgeries Data : 03/16/21 01:50 03/17/21 05:30 A&P Assessment and plan (1) Intertrochanteric fracture of right hip: Status: Acute (2) Pacemaker ECG pattern: Status: Acute (3) Hypokalemia: Status: Acute (4) Hip fracture: Status: Acute Additional A&P Information Postop day 0 status post intervention for intertrochanteric hip fracture No complications during surgery Patient is hemodynamically stable On 2 L nasal cannula postoperatively, wean off oxygen Incentive spirometry Monitor for postop complications PT evaluation Family requesting [facility] inpatient rehab A. 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
--- NOTE | 2021-03-17 14:23 | PC.NURSE ---
PT PT AT PTS SIDE ATTEMPTING TO WORK WITH PT - PT CHILANGO POORLY - 2MG MORPHINE GIVEN PER THISE NURSE - X2 DAUGHTERS AT SIDE
--- NOTE | 2021-03-17 14:39 | ANE.PACU2 ---
Inpatient post-anesthesia follow up: Airway intact: Yes Vital signs: Temperature 97.6 F Pulse Rate [Monito r] 60 Pulse Rate 60 Respiratory Rate 20 Blood Pressure [Le ft Arm] 145/55 Blood Pressure 124/60 Pulse Oximetry 100 Oxygen Delivery Me thod Nasal Cannula Oxygen Flow Rate 2 Fraction of Inspir ed Oxygen Hydration adequate: Yes Nausea and vomiting: No Pain level: 2 Mental status: Baseline
--- NOTE | 2021-03-17 18:24 | PC.NURSE ---
END OF SHIFT SUMMARY PT HAS RESTED MOST OF THE DAY - ALBERTO, PT AT PTS SIDE PREVIOUSLY - PT REQUIRED A LOT OF ENCOURAGEMENT TO PARTICIPATE IN PT - WAS ONLY ABLE TO STAND BEDSIDE BRIEFLY WITH MAX ASST - RIGHT HIP DRESSING C/D/I WITH NO DRAINAGE NOTED - PPP - SALAS REMAINS IN PLACE
[2021-03-17] MEDS: enoxaparin 40 mg/0.4 mL Syringe SUBCUT (20:12)
[2021-03-17] MEDS: acetaminophen 500 mg Tablet PO (23:29)
[2021-03-18] VITALS (9 sets, daily range): BP systolic 87–147; BP diastolic 44–65; PULSE 60–69; RESP 16–20; TEMP 36.6–37.5; O2SAT 90–97
[2021-03-18 02:39] LABS: Basophils % 0.2 %; Eosinophils % 0.6 %; Hematocrit 26.5 % (37.0-47.0); Hemoglobin 8.4 g/dL (11.5-15.3); Lymphocytes # 0.8 10^3/uL (0.8-4.8); Lymphocytes % 15.3 %; Mean Corpuscular HGB Conc 31.7 g/dL (30.0-36.0); Mean Corpuscular Hemoglobin 27.1 pg (28.0-34.0); Mean Corpuscular Volume 85.5 fl (81-99); Mean Platelet Volume 10.9 fL (7.4-10.4); Monocytes # 0.7 10^3/uL (0.2-0.9); Monocytes % 14.3 %; Neutrophils # 3.54 10^3/uL (1.8-7.7); Neutrophils % 68.6 %; Nucleated Red Blood Cells % 0 %; Platelet Count 176 10^3/cmm (130-400); Red Cell Distribution Width 15.2 % (12.1-15.1); White Blood Count 5.2 10^3/uL (4.0-10.0)
[2021-03-18 03:07] LABS: Anion Gap 10.6 (5-19); Blood Urea Nitrogen 19 mg/dL (8-23); Calcium 7.3 mg/dL (8.5-10.5); Carbon Dioxide 26 mmol/L (22-29); Chloride 103 mmol/L (98-107); Glucose 124 mg/dL (65-115); Osmolality Calculated 286 mOsm/kg (285-295); Potassium 3.6 mmol/L (3.5-5.1); Sodium 136 mmol/L (136-145)
[2021-03-18] MEDS: levothyroxine 112 mcg Tablet PO (05:17)
[2021-03-18] MEDS: oxyCODONE 5 mg IR Tab/Cap PO ×2 (05:17→11:00)
--- NOTE | 2021-03-18 05:40 | PC.NURSE ---
Patient AAOx2, hypotensive throughout shift, ji in place with very minimal output. Encouraged fluids and frequent turns. Patient refusing turns most of shift and educated on importance of frequent turns. No other needs at this time. Neuro checks all intact. Room clutter free and call light in reach.
[2021-03-18] MEDS: hydrocortisone 100 mg/2 mL SDV IVP (08:33)
[2021-03-18] MEDS: midodrine 5 mg TABLET PO (08:34)
[2021-03-18] MEDS: lactated ringers 1,000 ML 999 ML IV ×2 (08:34→13:22)
[2021-03-18] MEDS: sennosides-docusate Tablet 1 TAB PO (08:35)
[2021-03-18 08:38] LABS: Hematocrit 26.4 % (37.0-47.0); Hemoglobin 8.6 g/dL (11.5-15.3)
[2021-03-18] MEDS: acetaminophen 500 mg Tablet PO ×2 (10:58→16:27)
--- NOTE | 2021-03-18 11:53 | ECG_ITS ---
[facility] Test Date: 2021-03-18 Pat Name: Angelic Lizarraga Department: Room: 273 Gender: Female Room Service Manager: : 1940 Requested By: Geoffrey Butler Order Number: [id number] Barby MD: Laureano Velez M.D. Measurements Intervals [place] Rate: 62 P: 94 NH: 311 QRS: -36 QRSD: 125 T: 91 QT: 413 QTc: 420 Interpretive Statements ELECTRONIC ATRIAL PACEMAKER LEFT AXIS DEVIATION [QRS AXIS < -30] POSSIBLE ANTERIOR MYOCARDIAL INFARCTION , PROBABLY OLD [30 ms Q WAVE IN V3/V4, OR R < 0.2 mV IN V4] Compared to ECG 03/16/2021 01:44:48 Myocardial infarct finding now present Intraventricular conduction delay no longer present T-wave abnormality no longer present Possible ischemia no longer present Electronically Signed On 03-18-2021 17:07:27 CDT by Laureano Velez M.D. [id number]
--- NOTE | 2021-03-18 12:46 | PM.PN ---
Subjective Subjective: Interval history: Around 7 AM systolic blood pressure was around 96 he was given 1 L IV fluid bolus along 100 mg of IV steroids and midodrine 5 mg her blood pressure transiently improved Around 11 AM her blood pressure decreased again to 87/44, decision was made to transfer her to ICU for Levophed gtt. I also requested EKG, troponin random cortisol, lactic acid 1 L bolus Patient is awake and alert not complaining active chest pain repeat H&H stable Another H&H at 3 PM Vitals/I&O/Wt Last Vital Signs Temp 98.4 F 03/18/21 11:39 Pulse 62 03/18/21 11:39 Resp 16 03/18/21 11:39 BP 87/44 03/18/21 11:39 Pulse Ox 93 03/18/21 11:39 03/17/21 03/18/21 03/18/21 22:59 06:59 14:59 Intake Total 550.5 / 910.5 100 / 1010.5 1000 / 1000 Output Total 250 / 290 200 / 490 Balance 300.5 / 620.5 -100 / 520.5 1000 / 1000 Physical Exam Narrative: EXAM NARRATIVE: Patient was laying supine Complaining of pain 6/10 however slightly better than yesterday Awake alert nonfocal neuro exam Extremely fatigued and lethargic S1, S2 variable, Soft abdomen I do not notice any petechiae bruises or vascular compromise of right leg Family at the bedside No audible stridor or wheezing saturating well on 1 L, Urinary Catheter Management^: Marquis: Cath Placed During This Visit: yes, but has since been removed by the nurse Reason for Continuing Indwelling Catheter: Perioperative Use in Selected Surgeries Date Urinary Catheter Removed: 03/18/21 Time Urinary Catheter Discontinued: 05:50 Data : 03/18/21 08:04 03/18/21 02:19 A&P Assessment and plan (1) Intertrochanteric fracture of right hip: Status: Acute (2) Pacemaker ECG pattern: Status: Acute (3) Hypokalemia: Status: Acute (4) Hip fracture: Status: Acute (5) Hypotension: Status: Acute (6) Postoperative anemia: Status: Acute (7) DORA (acute kidney injury): Status: Acute Additional A&P Information Postop day 1 Hypotensive today Hemoglobin 1 g drop, repeat H&H stable Did not respond adequately to the IV fluids, transferring patient to ICU for Levophed gtt. Repeat H&H at 3 PM Start midodrine Check random cortisol, EKG, lactic acid, troponin Heart rate above 60, she does respond to fluid resuscitation Hypokalemia: Repleted, and potassium to make it >4 DORA secondary to hypotension, postoperative, anticipate improvement with IV fluid Full code Regular diet Currently on Lovenox for DVT prophylaxis we will start Xarelto if hemoglobin stays stable She has been accepted at [facility] rehab, will request Covid PCR Attestations Medical Necessity Statement*: ICU transfer today Time Spent in Patient Care: 16 - 35 minutes Coding Level of Care Code Acute Consumer Safety Inspector for Jeradg Fwd Diagnoses Intertrochanteric fracture of right hip S72.141A Pacemaker ECG pattern Z95.0 Hypokalemia E87.6 Hip fracture S72.009A Hypotension I95.9 Postoperative anemia D64.9 DORA (acute kidney injury) N17.9
[2021-03-18 12:55] LABS: Lactate (Lactic Acid level) 1.1 mmol/L (0.5-2.2)
[2021-03-18 12:58] LABS: Troponin T (5th) Once 30 ng/L (0-10)
--- NOTE | 2021-03-18 13:02 | PM.PN ---
Subjective Subjective: Interval history: POD 1 Patient resting comfortably. She does complain of some lightheadedness. Her family is present. Denies any chest pain or shortness of breath. Vitals/I&O/Wt Last Vital Signs Temp 98.4 F 03/18/21 11:39 Pulse 62 03/18/21 11:39 Resp 16 03/18/21 11:39 BP 87/44 03/18/21 11:39 Pulse Ox 93 03/18/21 11:39 03/17/21 03/18/21 03/18/21 22:59 06:59 14:59 Intake Total 550.5 / 910.5 100 / 1010.5 1000 / 1000 Output Total 250 / 290 200 / 490 Balance 300.5 / 620.5 -100 / 520.5 1000 / 1000 Physical Exam Narrative: EXAM NARRATIVE: Patient is alert and orient x3 has good general appearance normal normal affect. Right hip incision is clean and dry. There is no signs of erythema or drainage no signs of infection. Good motor strength throughout both lower extremities. Fires in all motor groups. Skin is clear warm, feet are warm with good cap refill in all digits. Normal sensation to light touch. Calves are supple, no medial thigh tenderness, negative Homans' sign. No palpable edema peripherally. Urinary Catheter Management^: Marquis: Cath Placed During This Visit: yes, but has since been removed by the nurse Reason for Continuing Indwelling Catheter: Perioperative Use in Selected Surgeries Date Urinary Catheter Removed: 03/18/21 Time Urinary Catheter Discontinued: 05:50 Data : 03/18/21 08:04 03/18/21 02:19 A&P Assessment and plan (1) Postoperative anemia: Status: Acute (2) Intertrochanteric fracture of right hip: Physical therapy evaluate to mobilize. She is set up to go to rehab facility tomorrow. Have the thor removed at the rehab facility had 2 weeks. We will see her back for follow-up in 2 weeks. Continue incentive spirometry for pulmonary toilet. Status: Acute Attestations Medical Necessity Statement*: defer to medical team Coding Level of Care Code Acute Wire Wrapping Machine Operator for Jess Millan Diagnoses Postoperative anemia D64.9 Intertrochanteric fracture of right hip S72.141A
[2021-03-18 13:05] LABS: Cortisol Random 47.19 ug/dL (2.47-19.5)
--- NOTE | 2021-03-18 13:39 | PC.SOCIAL ---
IMM Update: pg 2 of IMM updated and reviewed w/ patient and daughter. Copy provided.
[2021-03-18 14:24] LABS: D Dimer 2.24 ug/mIFEU (0-0.59)
[2021-03-18] MEDS: midodrine 5 mg TABLET 10 MG PO ×2 (14:46→20:12)
[2021-03-18 15:43] LABS: Hematocrit 25.8 % (37.0-47.0)
[2021-03-18] MEDS: calcium gluconate 0.1 gm/mL 10% SDV 10mL 1 GM IVP (17:47)
[2021-03-18 17:50] LABS: NT Pro B Type Natriuretic Pept 1038 pg/mL (0-450)
[2021-03-18] MEDS: enoxaparin 40 mg/0.4 mL Syringe SUBCUT (20:11)
[2021-03-19] VITALS (15 sets, daily range): BP systolic 111–130; BP diastolic 52–72; PULSE 60–66; RESP 16–20; TEMP 36.4–36.9; O2SAT 90–95
[2021-03-19] MEDS: TRAMadol 50 mg Tablet PO ×3 (02:29→10:15)
[2021-03-19 02:44] LABS: Basophils % 0.2 %; Eosinophils # 0.1 10^3/uL (0.0-0.8); Eosinophils % 1.4 %; Hematocrit 23.7 % (37.0-47.0); Hemoglobin 7.4 g/dL (11.5-15.3); Lymphocytes # 0.7 10^3/uL (0.8-4.8); Lymphocytes % 16.3 %; Mean Corpuscular HGB Conc 31.2 g/dL (30.0-36.0); Mean Corpuscular Hemoglobin 26.4 pg (28.0-34.0); Mean Corpuscular Volume 84.6 fl (81-99); Mean Platelet Volume 11.2 fL (7.4-10.4); Monocytes # 0.6 10^3/uL (0.2-0.9); Monocytes % 13.3 %; Neutrophils # 3.01 10^3/uL (1.8-7.7); Neutrophils % 68.1 %; Nucleated Red Blood Cells % 0 %; Platelet Count 209 10^3/cmm (130-400); Red Cell Distribution Width 15.2 % (12.1-15.1); White Blood Count 4.4 10^3/uL (4.0-10.0)
[2021-03-19 03:07] LABS: Anion Gap 11.8 (5-19); Blood Urea Nitrogen 26 mg/dL (8-23); Calcium 7.7 mg/dL (8.5-10.5); Carbon Dioxide 26 mmol/L (22-29); Chloride 104 mmol/L (98-107); Glucose 103 mg/dL (65-115); Osmolality Calculated 291 mOsm/kg (285-295); Potassium 3.8 mmol/L (3.5-5.1); Sodium 138 mmol/L (136-145)
[2021-03-19] MEDS: levothyroxine 112 mcg Tablet PO (06:01)
--- NOTE | 2021-03-19 06:07 | PC.NURSE ---
Patient AAOx4, VSS, patient was able to get OOB to BSC with assist x2. Has not been able to void. Patient bladder scanned and physician paged awaiting call back. Patient refused q2 turns over night but did dangle at side of bed x2. Room clutter free and call light in reach.
--- NOTE | 2021-03-19 06:57 | PM.PN ---
Subjective Subjective: Interval history: POD 2 Patient was on the bedside commode mobilizing back to the bed. Reported right hip pain. Denies any lightheadedness or dizziness. Vitals/I&O/Wt Last Vital Signs Temp 98.4 F 03/19/21 03:21 Pulse 61 03/19/21 03:21 Resp 20 H 03/19/21 03:21 BP 124/65 03/19/21 03:21 Pulse Ox 92 03/19/21 03:21 03/18/21 03/18/21 03/19/21 14:59 22:59 06:59 Intake Total 1999 1000 / 3000 600 / 3600 Output Total 400 / 400 175 / 575 Balance 1999 600 / 2600 425 / 3025 Physical Exam Narrative: EXAM NARRATIVE: She is alert and oriented x3 she has good general appearance normal normal affect. Incisions are clean and dry. Palpable pain over the right hip. Calves are supple she wiggles all digits are warm to the touch. Urinary Catheter Management^: Marquis: Cath Placed During This Visit: yes, but has since been removed by the nurse Reason for Continuing Indwelling Catheter: Perioperative Use in Selected Surgeries Date Urinary Catheter Removed: 03/18/21 Time Urinary Catheter Discontinued: 05:50 Data : 03/19/21 02:18 03/19/21 02:18 A&P Assessment and plan (1) Postoperative anemia: Status: Acute (2) Intertrochanteric fracture of right hip: You are being discharged from the hospital today during which time you have been under the care of Dr. Bustos []. You had a [ORIF right hip for intertrochanteric hip fracture. You were treated for this injury with []. You may resume you normal diet (including any special diets as directed by your primary doctor) as well as your home medications. You should follow up with you primary doctor if you have any questions regarding medication you took prior to your stay in the hospital. You may take your pain medication as prescribed. After the first few days, take your pain medication as needed. Do not drive or drink alcohol while taking your pain medication. Your injury may increase your risk of developing a blood clot,or DVT, in your arm or leg. This could potentially dislodge and travel to your lungs and become a life threatening condition called apulmonary embolus,or PE. You have been prescribed [] to be taken to prevent this. Frequent movement of the [] will also help prevent this from occurring. If you develop any new or worsening cough, chestpain, bloody sputum or shortness of breath, call 911 or go to the EmergencyRoom. Always keep your surgical incision/dressing clean and dry. If you experience increasing pain at your incision site, redness, swelling, increasing discharge, foul odors, or fevers (greater than 100.4), night sweats or chills you should call the office at the above number. If you feel this is an emergency you should be evaluated in the Emergency Department of a nearby hospital. Orthopedic Patient Instructions Summary: Weight Bearing: [Weightbearing as tolerated] Activity: []. Diet: []. Splint Care: Keep splint clean and dry. Cover with a plastic bag for bathing. Wound Care: Keep dressing clean and dry. Anticoagulation: [Xarelto per medicine team] Pain Medication: Take only as needed. Ice, rest and elevation will be of great benefit. Please plan to follow-up [facility] [[facility]] in [1] weeks. You will need to call the clinic [phone] to schedule this visit. Thank you far allowing me to participate in your care. Do not hesitate to call the office with any questions or concerns. Status: Acute Attestations Medical Necessity Statement*: derfer to medical team Coding Level of Care Code Acute Yardage Tufting Machine Operator for Jess Millan Diagnoses Postoperative anemia D64.9 Intertrochanteric fracture of right hip S72.141A
[2021-03-19] MEDS: acetaminophen 500 mg Tablet PO (08:01)
[2021-03-19] MEDS: midodrine 5 mg TABLET 10 MG PO (08:03)
[2021-03-19] MEDS: sennosides-docusate Tablet 1 TAB PO (08:04)
--- NOTE | 2021-03-19 08:32 | USCV_ITS ---
Angelic Lizarraga Age: 80 Gender: F : 1940 Exam Date: 03/19/2021 11:04 Ordering Phys: Geoffrey Butler MD Technologist: Selina De Exam Location: [facility] [place] Indication: EDEMA/ post op hip surgery HISTORY: post op hip surgery with increased edema RLE PROCEDURES: Bilaterally, the common femoral, superficial femoral, profunda femoral, popliteal, posterior tibial, greater saphenous veins, and the peroneal trunk were identified and interrogated in the standard fashion. In addition, the posterior tibial and peroneal trunk were evaluated. FINDINGS: Normal 2-D Doppler and augmentation and compressibility throughout the lower extremity venous structures. Additional imaging through the proximal calf veins also reveals no thrombus. Limited evaluation of the greater saphenous vein is patent with no thrombus. CONCLUSIONS No DVT bilateral lower extremities. Dr. Vania Orozco DO (Electronically Signed) Final Date: 19 March 2021 11:57 S
--- NOTE | 2021-03-19 08:32 | CT_ITS ---
WS: [id number] CT CHEST ANGIOGRAPHY WITH REFORMATS HISTORY: PE TECHNIQUE: Contiguous axial images are obtained through the chest during arterial injection of intrav enous contrast. Images are reconstructed to evaluate the pulmonary arteries. MIP imaging also reviewe d. All CT scans at [facility] use at least one of these dose optimization techniques: automat ed exposure control; mA and/or kV adjustment per patient size (includes targeted exams where dose is matched to clinical indication); or iterative reconstruction. CONTRAST: Omnipaque 350; 95 mL IV. DLP: 634.27 mGy.cm COMPARISON: None available. Limited evaluation of the pulmonary arteries. Contrast bolus is suboptimal beyond the proximal branch es. No central pulmonary embolism. Extending into the segmental and subsegmental branches the opacifi cation is limited. No filling defects. Mild atherosclerosis thoracic aorta. No aneurysm. Mild enlarge ment of the LEFT heart chambers. No RIGHT heart strain. No significant pericardial or pleural effusio ns. Subsegmental atelectasis along the superior RIGHT lower lobe. No mass or pneumonia. Benign granul nirav RIGHT lung base. Mildly prominent lymphoid tissue at the hilar regions. No significant adenopathy . No adrenal mass. Cortical scar lateral RIGHT kidney. Splenic granulomata. Mild increase in thoracic kyphosis. CT/CT angio chest PE protcl [id number] IMPRESSION: 1. No central pulmonary embolism. Beyond the segmental branches. Opacification becomes limited. 2. Subsegmental atelectasis superior segment RIGHT lower lobe. 3. Mild LEFT heart enlargement.
[2021-03-19] MEDS: iohexol 350 mg/mL 100 mL Btl IV (09:10)
--- NOTE | 2021-03-19 10:31 | P.PN_ITS ---
Subjective Subjective: Interval history: Patient was complaining of mild pain, no active bleeding, hemoglobin 7.4 requested 1 unit PRBC Lovenox held, blood pressure stable since 2 L bolus given on 03/18 No need of ICU Retinal cortisol level normal BNP 1000, baseline troponin 30 No active bleeding We will get occult study Vitals/I&O/Wt Last Vital Signs Temp 97.8 F 03/19/21 08:00 Pulse 66 03/19/21 08:00 Resp 18 03/19/21 08:00 BP 130/70 03/19/21 08:00 Pulse Ox 92 03/19/21 08:00 03/18/21 03/19/21 03/19/21 22:59 06:59 14:59 Intake Total 1000 / 3000 600 / 3600 360 / 360 Output Total 400 / 400 175 / 575 Balance 600 / 2600 425 / 3025 360 / 360 Physical Exam Narrative: EXAM NARRATIVE: Patient laying supine Limited range of motion secondary to pain No active bleeding Dressing not soaked with blood No vascular compromise of lower extremities EOMI, PERRLA Fatigue and lethargic Nonfocal neuro exam S1, S2 variable clinically looks euvolemic Abdomen soft No audible stridor or wheezing saturating well on room air Urinary Catheter Management^: Marquis: Cath Placed During This Visit: yes, but has since been removed by the nurse Reason for Continuing Indwelling Catheter: Perioperative Use in Selected Surgeries Date Urinary Catheter Removed: 03/18/21 Time Urinary Catheter Discontinued: 05:50 Data : 03/19/21 02:18 03/19/21 02:18 A&P Assessment and plan (1) Hypotension: Status: Acute (2) Postoperative anemia: Status: Acute (3) DORA (acute kidney injury): Status: Acute (4) Intertrochanteric fracture of right hip: Status: Acute (5) Pacemaker ECG pattern: Status: Acute (6) Hypokalemia: Status: Acute (7) Hip fracture: Status: Acute Additional A&P Information Postop day 2 Postoperative anemia No active bleeding We will request fecal occult blood test No significant blood loss during surgery as per operative notes Blood pressure stable after 2 L bolus that was given on 03/18 Random cortisol level is normal TSH normal EKG without ischemic or infarctive changes, baseline troponin 30 BNP 1000 High D-dimer she is not requiring any oxygen, heart rate 66, requested CTA chest but did not show PE, requested venous Dopplers currently Lovenox on hold Requested 1 unit of PRBC Would like to monitor 1 more day 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 if she could be discharged over the weekend to the rehab DORA: Resolved with IV fluids Pacemaker: No events reported Hypokalemia: Repleted Hypocalcemia: We will give her 1 g of calcium gluconate Full code Cardiac diet DVT prophylaxis currently on hold due to anemia: SCDs Attestations Medical Necessity Statement*: Plan to discharge over the weekend Time Spent in Patient Care: less than 15 minutes Coding Level of Care Code Acute Surgical First Assistant for g Fwd Diagnoses Hypotension I95.9 Postoperative anemia D64.9 DORA (acute kidney injury) N17.9 Intertrochanteric fracture of right hip S72.141A Pacemaker ECG pattern Z95.0 Hypokalemia E87.6 Hip fracture S72.009A
[2021-03-19] MEDS: calcium gluconate 0.1 gm/mL 10% SDV 10mL 1 GM IVP (12:13)
[2021-03-19] MEDS: potassium chloride ER 20 mEq Tablet 40 MEQ PO (12:13)
[2021-03-19] MEDS: polyethylene glycol 3350 Pkt 17 gm PO (12:13)
[2021-03-19] MEDS: HYDROmorphone 1 mg/mL INJ 1 mL 0.4 MG IVP (12:15)
--- NOTE | 2021-03-19 13:49 | CT_ITS ---
WS: [id number] CT RIGHT HIP, NONCONTRAST HISTORY: post op anemia and leg pain Technique: All CT scans at [facility] use at least one of these dose optimization techniques: automated exposure control; mA and/or kV adjustment per patient size (includes targeted exams where dose is matched to clinical indication); or iterative reconstruction. DLP: 2555.7 mGy.cm COMPARISON: 03/17/2021 Recent postoperative fixation RIGHT intertrochanteric hip fracture. Avulsion of the lesser trochanter . Fracture extends from the femoral neck through the intertrochanteric region. Mild separation along the fracture line by 7 mm. No new fracture. Several small foci of air and adjacent edema at the fract ure site. The extent of the bleeding is probably not increased. Visualized urinary bladder contains h igh density contrast prior angiogram. Pubic rami are intact. CT/CT hip RT wo con* [id number] IMPRESSION: Status post ORIF RIGHT hip fracture. Small amount of bleeding and edema along the fracture site. Extent of the bleed ing does not appear excessive.
[2021-03-19 14:38] LABS: Coronavirus Test Green County Not Detected
[2021-03-19 16:30] LABS: Add Urine Microscopic? YES; Bilirubin Urine Neg (Negative); Blood Urine 2+ (Negative); Glucose Urine UA Norm (Normal); Ketones Urine Negative (Negative); Leukocyte Esterase Urine Trace (Negative); Nitrate Urine Negative (Negative); Protein Urine Neg (Negative); Urine Appearance Clear (CLEAR); Urine Color Yellow (Yellow); Urobilinogen Urine Norm (Negative); pH Urine 5 (5-7)
[2021-03-19 16:43] LABS: Add Urine Culture? No; Bacteria Urine TRACE /hpf; RBC Urine 0-4 /hpf (0-2); Squamous Epithelial Cell Urine 0-4 /hpf (0-5); WBC Urine 0-4 /hpf (0-5)
[2021-03-19] MEDS: HYDROmorphone 1 mg/mL INJ 1 mL IVP ×2 (17:34→22:43)
[2021-03-19 20:00] LABS: Hematocrit 27.4 % (37.0-47.0); Hemoglobin 8.9 g/dL (11.5-15.3)
[2021-03-20 04:00] VITALS: BP 130/52; PULSE 60; RESP 16; TEMP 36.5; O2SAT 96
[2021-03-20] MEDS: levothyroxine 112 mcg Tablet PO (05:26)
--- NOTE | 2021-03-20 05:46 | PC.NURSE ---
Patient AAOx4, pain controlled with pain medication regimen per JUL, VSS, slept throughout night, OOBT bedside commode, voided but has post-void residual, patient states this is normal also states she takes AZO regularly at home. Patient refused frequent turns due to not wanting to go into pain and just sleep. Dressing dry and intact. No needs at this time, room clutter free and call light in reach.
[2021-03-20 06:03] LABS: Basophils % 0.7 %; Eosinophils # 0.1 10^3/uL (0.0-0.8); Eosinophils % 2.7 %; Hematocrit 25.5 % (37.0-47.0); Hemoglobin 8.1 g/dL (11.5-15.3); Lymphocytes # 0.5 10^3/uL (0.8-4.8); Lymphocytes % 17.1 %; Mean Corpuscular HGB Conc 31.8 g/dL (30.0-36.0); Mean Corpuscular Hemoglobin 27.2 pg (28.0-34.0); Mean Corpuscular Volume 85.6 fl (81-99); Mean Platelet Volume 10.6 fL (7.4-10.4); Monocytes # 0.4 10^3/uL (0.2-0.9); Monocytes % 13.4 %; Neutrophils # 1.91 10^3/uL (1.8-7.7); Neutrophils % 65.4 %; Nucleated Red Blood Cells % 0 %; Platelet Count 220 10^3/cmm (130-400); Red Blood Count 2.98 10^6/uL (4.1-5.3); Red Cell Distribution Width 15.1 % (12.1-15.1); White Blood Count 2.9 10^3/uL (4.0-10.0)
[2021-03-20 06:23] LABS: Anion Gap 10.2 (5-19); Blood Urea Nitrogen 18 mg/dL (8-23); Calcium 7.8 mg/dL (8.5-10.5); Carbon Dioxide 27 mmol/L (22-29); Chloride 102 mmol/L (98-107); Glucose 90 mg/dL (65-115); Osmolality Calculated 281 mOsm/kg (285-295); Potassium 4.2 mmol/L (3.5-5.1); Sodium 135 mmol/L (136-145)
[2021-03-20 08:00] VITALS: BP 123/63; PULSE 60; RESP 16; TEMP 37.1; O2SAT 98
[2021-03-20 08:04] VITALS: RESP 16
[2021-03-20] MEDS: HYDROmorphone 1 mg/mL INJ 1 mL IVP ×3 (08:04→14:40)
[2021-03-20] MEDS: sennosides-docusate Tablet 1 TAB PO (08:04)
[2021-03-20 09:01] LABS: Hematocrit 29.2 % (37.0-47.0); Hemoglobin 9.3 g/dL (11.5-15.3)
--- NOTE | 2021-03-20 11:14 | PM.DCS ---
Discharge Providers Date of Admission: 03/15/21 14:31 Date of Discharge: March 20, 2021 Attending Provider at Admission: Geoffrey Butler MD Attending Provider at Discharge: Geoffrey Butler MD Primary Care Provider: HELEN Garrett Diagnoses at Discharge Discharge Diagnosis (1) Hypotension: Status: Acute (2) Postoperative anemia: Status: Acute (3) DORA (acute kidney injury): Status: Acute (4) Intertrochanteric fracture of right hip: Status: Acute (5) Pacemaker ECG pattern: Status: Acute (6) Hypokalemia: Status: Acute (7) Hip fracture: Status: Acute Reason for Visit Reason for Visit: FALL, R HIP/FEMUR PAIN Hospital Course Hospital Course History of Present Illness Angelic Lizarraga is a 80 year old female who has history of atrial fibrillation, chronic anticoagulation with Xarelto, pacemaker placement for palpitations, without any history of CHF, [place] presented today with chief complaint of sustaining a fall at home. Daughters are at the bedside were endorsing that lately her mother gets tired easily with mild to moderate exertional activities. Today she was cleaning windows when got tired. She was trying to sit in a chair when she lost her balance and fell on the wooden floor. After this fall she could not bear weight on her right leg. EMS was called who brought her to the hospital. In the ER she was diagnosed with right intertrochanteric fracture. Her last Xarelto dose was on 03/14 at 7 PM. No history of seizure, today she did not lose consciousness, she is attributing her falls to losing balance. No recent shortness of breath, palpitations, chest pain, fever. She is vaccinated with moderna COVID-19 vaccine. Status post booster dose as well. Patient is stating that pacemaker battery was replaced 2 years ago, she is not able to tell me clearly why pacemaker was placed, patient is stating that mostly at home her heart rate stayed in 60s Hospital course Patient was admitted for surgical intervention of the hip fracture. Preop work-up included pacemaker interrogation and echo which was unremarkable. No complications during surgery however and postoperative period she developed blood loss anemia, her pain was rather difficult to control I kept her on Dilaudid and oxycodone which seemed to help her pain. She became hypotensive 24 hours after surgery, required 2 L of fluid boluses which improved her blood pressure, normal TSH and cortisol level. EKG showed paced rhythm heart rate consistently around 60s. Patient did not develop any chest pain or shortness of breath. Right hip CT scan showed mild postoperative bleeding otherwise unremarkable. She did receive 1 unit PRBC on 03/19 which improved her H&H. She remained hemodynamically stable. I counseled patient and family to start Xarelto on Monday after repeating another CBC, resume Xarelto if hemoglobin stays above 8.9. Family is in agreement. Patient will be discharged to [facility] rehab where her daughter works. Changes made in her home medications: Discontinued amiodarone and Coreg for bradycardia requested family to follow-up with interactive media marketing strategist for pacemaker optimization, rule out pacemaker syndrome heart rate consistently stays around 60s Physical Exam Narrative: EXAM NARRATIVE: Patient was working with physical therapist S1, S2 Saturating well on room air Abdomen soft Right leg with dressing no active bleeding noted No vascular compromise of right leg Nonfocal neuro exam Saturating well on room air Urinary Catheter Management^: Marquis: Cath Placed During This Visit: yes, but has since been removed by the nurse Reason for Continuing Indwelling Catheter: Perioperative Use in Selected Surgeries Date Urinary Catheter Removed: 03/18/21 Time Urinary Catheter Discontinued: 05:50 Discharge Data Data Completed and Pending: Completed Studies During Hospitalization Category Date Time Status CT angio chest PE protcl [id number] Urge nt Cat Scan 03/19/21 08:[address] hip RT wo con* [id number] Urgent Cat Scan 03/19/21 13:49 Completed XR chest 1V markos ble [id number] Stat Exams 03/15/21 13:54 Completed XR femur RT min 2 V* [id number] Stat Exams 03/15/21 13:14 Completed XR hip RT 2-3V wo /w pel* [id number] Rout ine Exams 03/17/21 Completed XR hip RT 2-3V wo /w pel* [id number] Stat Exams 03/15/21 13:14 [place] [id number] Routin e Ultrasound 03/19/21 08:32 Completed CV. echo complete * [id number] Routine Ultrasound 03/16/21 06:00 Completed Pending at discharge Category Date Time Status Immunochemical Fe arnie OCB Routine Lab 03/19/21 10:37 Uncollected Labs from last 24 hours 03/20/21 03/20/21 03/20/21 08:50 05:20 05:20 WBC 2.9 L RBC 2.98 L Hgb 9.3 L 8.1 L Hct 29.2 L 25.5 L MCV 85.6 MCH 27.2 L MCHC 31.8 RDW 15.1 Plt Count 220 MPV 10.6 H Neut % (Auto) 65.4 Lymph % (Auto) 17.1 Winkler % (Auto) 13.4 Eos % (Auto) 2.7 Baso % (Auto) 0.7 Neut # (Auto) 1.91 Lymph # (Auto) 0.5 L Winkler # (Auto) 0.4 Eos # (Auto) 0.1 Baso # (Auto) 0.0 Nucleated RBC % (a uto) 0 Nucleated RBCs # 0.0 Sodium 135 L Potassium 4.2 Chloride 102 Carbon Dioxide 27 Anion Gap 10.2 BUN 18 Creatinine 0.6 GFR Calculation Not Reportable Glucose 90 Calculated Osmolal ity 281 L Calcium 7.8 L Urine Color Urine Appearance Urine pH Ur Specific Gravit y Urine Protein Urine Glucose (UA) Urine Ketones Urine Blood Urine Nitrate Urine Bilirubin Urine Urobilinogen Ur Leukocyte Johanne ase Urine RBC Urine WBC Ur Squamous Epith Cells Amorphous Sediment Urine Bacteria Nasal/Oral COVID-1 9 PCR Blood Type Rho(D) Type Antibody Screen Crossmatch 03/19/21 03/19/21 03/19/21 19:48 11:00 09:40 WBC RBC Hgb 8.9 L Hct 27.4 L MCV MCH MCHC RDW Plt Count MPV Neut % (Auto) Lymph % (Auto) Winkler % (Auto) Eos % (Auto) Baso % (Auto) Neut # (Auto) Lymph # (Auto) Winkler # (Auto) Eos # (Auto) Baso # (Auto) Nucleated RBC % (a uto) Nucleated RBCs # Sodium Potassium Chloride Carbon Dioxide Anion Gap BUN Creatinine GFR Calculation Glucose Calculated Osmolal ity Calcium Urine Color Yellow Urine Appearance Clear Urine pH 5 Ur Specific Gravit y 1.000 L Urine Protein Neg Urine Glucose (UA) Norm Urine Ketones Negative Urine Blood 2+ H Urine Nitrate Negative Urine Bilirubin Neg Urine Urobilinogen Norm Ur Leukocyte Johanne ase Trace H Urine RBC 0-4 H Urine WBC 0-4 H Ur Squamous Epith Cells 0-4 H Amorphous Sediment Not Reportable Urine Bacteria Trace Nasal/Oral COVID-1 9 PCR Blood Type B Positive Rho(D) Type Positive Antibody Screen Negative Crossmatch See Detail 03/18/21 10:25 WBC RBC Hgb Hct MCV MCH MCHC RDW Plt Count MPV Neut % (Auto) Lymph % (Auto) Winkler % (Auto) Eos % (Auto) Baso % (Auto) Neut # (Auto) Lymph # (Auto) Winkler # (Auto) Eos # (Auto) Baso # (Auto) Nucleated RBC % (a uto) Nucleated RBCs # Sodium Potassium Chloride Carbon Dioxide Anion Gap BUN Creatinine GFR Calculation Glucose Calculated Osmolal ity Calcium Urine Color Urine Appearance Urine pH Ur Specific Gravit y Urine Protein Urine Glucose (UA) Urine Ketones Urine Blood Urine Nitrate Urine Bilirubin Urine Urobilinogen Ur Leukocyte Johanne ase Urine RBC Urine WBC Ur Squamous Epith Cells Amorphous Sediment Urine Bacteria Nasal/Oral COVID-1 9 PCR Not detected Blood Type Rho(D) Type Antibody Screen Crossmatch Vitals: Last Vital Signs Temp 98.8 F 03/20/21 08:00 Pulse 60 03/20/21 08:00 Resp 16 03/20/21 08:04 BP 123/63 03/20/21 08:00 Pulse Ox 98 03/20/21 08:00 Discharge Plan Discharge Patient Disposition: Xfer Inpatient Rehab Fac Condition: Stable Prescriptions: New Stool Softener-Laxative 8.6-50 mg Tablet 1 tab PO DAILY 30 Days Qty: 60 RF: 1 oxycodone 10 mg tablet 10 mg PO Q8H PRN (Reason: pain) Qty: 30 RF: 0 Miralax 17 gram/dose powder 8.5 g PO DAILY PRN (Reason: constipation) Qty: 119 RF: 0 Continued clobetasol 0.05 % cream 1 applic TOPICAL BID PRN (Reason: Rash) RF: 0 lisinopril 5 mg tablet 5 mg PO BID RF: 0 ergocalciferol (vitamin D2) 1,250 mcg (50,000 unit) capsule 50,000 unit PO Q7D RF: 0 Euthyrox 112 mcg tablet 112 mcg PO QAM RF: 0 Held Xarelto 15 mg tablet 15 mg PO BEDTIME RF: 0 Hold Instructions: Resume on 03/22/21. Discontinued carvedilol 12.5 mg tablet 12.5 mg PO BID RF: 0 amiodarone [Pacerone] 200 mg tablet 200 mg PO QAM RF: 0 Discharge Orders: Discharge Order (Routine); Ordered 03/20/21 Ordered By: Geoffrey Butler Other Ambulatory Orders: Complete Blood Count w/Auto (Routine) Timeframe: 2 Days Location: Determined by Patient Ordered By: Geoffrey Butler DME: Walker (Order) Location: None Selected Ordered By: Geoffrey Butler Referrals: [facility] [place] [Outside] Jacob Olvera DO [Physician] - 1 week (Please follow up with Dr. Olvera within one week.) Discharge Diet: Cardiac Discharge Activity: Increase activity as tolerated and As per PT/OT instructions Patient Instructions: Laxative, Stool Softeners (By mouth), Oxycodone, Rapid Release (By mouth), Polyethylene Glycol 3350 (By mouth), ORIF (GEN) Activity Restrictions/Additional Instructions: You are being discharged from the hospital today during which time you have been under the care of Dr. Bustos []. You had a [ORIF right hip for intertrochanteric hip fracture. You were treated for this injury with []. You may resume you normal diet (including any special diets as directed by your primary doctor) as well as your home medications. You should follow up with you primary doctor if you have any questions regarding medication you took prior to your stay in the hospital. You may take your pain medication as prescribed. After the first few days, take your pain medication as needed. Do not drive or drink alcohol while taking your pain medication. Your injury may increase your risk of developing a blood clot,or DVT, in your arm or leg. This could potentially dislodge and travel to your lungs and become a life threatening condition called apulmonary embolus,or PE. You have been prescribed [] to be taken to prevent this. Frequent movement of the [] will also help prevent this from occurring. If you develop any new or worsening cough, chestpain, bloody sputum or shortness of breath, call 911 or go to the EmergencyRoom. Always keep your surgical incision/dressing clean and dry. If you experience increasing pain at your incision site, redness, swelling, increasing discharge, foul odors, or fevers (greater than 100.4), night sweats or chills you should call the office at the above number. If you feel this is an emergency you should be evaluated in the Emergency Department of a nearby hospital. Orthopedic Patient Instructions Summary: Weight Bearing: [Weightbearing as tolerated] Activity: []. Diet: []. Splint Care: Keep splint clean and dry. Cover with a plastic bag for bathing. Wound Care: Keep dressing clean and dry. Anticoagulation: [Xarelto per medicine team] Pain Medication: Take only as needed. Ice, rest and elevation will be of great benefit. Please plan to follow-up wlth [May] in [1] weeks. You will need to call the clinic [phone] to schedule this visit. Thank you far allowing me to participate in your care. Do not hesitate to call the office with any questions or concerns. Discharge Attestations Time Spent in Discharge Care*: less than 30 min Quality Metrics Clinical Quality Measures During this hospital stay, did patient experience: None Coding Level of Care Code Acute Chg FW DC note Diagnoses Hypotension I95.9 Postoperative anemia D64.9 DORA (acute kidney injury) N17.9 Intertrochanteric fracture of right hip S72.141A Pacemaker ECG pattern Z95.0 Hypokalemia E87.6 Hip fracture S72.009A
--- NOTE | 2021-03-20 11:26 | PC.SOCIAL ---
IMM Updated Updated pt's family on Pg 2 IMM. No questions voiced. Provided pt/family a copy. Initialed, dated, & timed copy in chart.
[2021-03-20 11:53] VITALS: BP 135/57; PULSE 60; RESP 16; TEMP 36.7; O2SAT 91
[2021-03-20 12:30] VITALS: RESP 18
--- NOTE | 2021-03-20 13:01 | PC.NURSE ---
Report called to ANTWON Curran, at [facility] inpatient rehab.
[2021-03-20 14:40] VITALS: RESP 17
== END 2021-03-20 15:02 | disposition skilled nursing facility (03) | DRG 481 ==
LOC: ER 16:21 → MEDSURG 17:36
PROVIDERS: Orthopaedic Surgery; Admitting Provider Internal Medicine; Emergency Provider Family Medicine; PCP Registered Nurse; Visit Provider Internal Medicine
PROC: 0QS606Z Reposition Right Upper Femur with Intramedullary Internal Fixation Device, Open Approach (ICD-10-PCS; CPT 27245; principal; 2021-03-17 07:00)
DX: S72.141A Displaced intertrochanteric fracture of right femur, initial encounter for closed fracture (principal); N17.9 Acute kidney failure, unspecified; D62 Acute posthemorrhagic anemia; W18.30XA Fall on same level, unspecified, initial encounter; I48.91 Unspecified atrial fibrillation; E03.9 Hypothyroidism, unspecified; Z95.0 Presence of cardiac pacemaker; Z85.828 Personal history of other malignant neoplasm of skin; E87.6 Hypokalemia; I95.9 Hypotension, unspecified
CPT/HCPCS: 36415; 36430; 71045; 71275; 73502; 73552; 73700; 76000; 80048; 80053; 81001; 82533; 83605; 83735; 83880; 84443; 84484; 85014; 85018; 85025; 85378; 85610; 85730; 86850; 86900; 86920; 87635; 93005; 93306; 93970; 96372; 96374; 97110; 97162; 97165; 97530; 99285; C1713; C1776; J0610; J0690; J1170; J1650; J1720; J2270; J2370; J2405; J2704; J3010; J3490; J7030; J7799; P9016; Q9967

== ENCOUNTER → 2021-04-15 13:14 | Outpatient (BNVA) | payer MEDICARE, OTHER, SELFPAY | PROVIDERS: PCP Registered Nurse; Visit Provider Orthopaedic Surgery | DX: S72.141A Displaced intertrochanteric fracture of right femur, initial encounter for closed fracture (principal); X58.XXXA Exposure to other specified factors, initial encounter | CPT/HCPCS: 73502 ==

== ENCOUNTER → 2021-05-27 13:37 | Outpatient (BNVA) | payer MEDICARE, OTHER, SELFPAY | PROVIDERS: PCP Registered Nurse; Visit Provider Orthopaedic Surgery | DX: Z48.89 Encounter for other specified surgical aftercare (principal); S72.141D Displaced intertrochanteric fracture of right femur, subsequent encounter for closed fracture with routine healing; X58.XXXD Exposure to other specified factors, subsequent encounter | CPT/HCPCS: 73502 ==

== ENCOUNTER → 2021-06-24 14:28 | Outpatient (BNVA) | payer MEDICARE, OTHER, SELFPAY | PROVIDERS: PCP Registered Nurse; Visit Provider Orthopaedic Surgery | DX: Z48.89 Encounter for other specified surgical aftercare (principal) | CPT/HCPCS: 73502 ==

== ENCOUNTER → 2021-10-05 10:09 | Outpatient (BNVA) | payer MEDICARE, OTHER, SELFPAY | PROVIDERS: PCP Registered Nurse; Visit Provider Orthopaedic Surgery | DX: S72.144D Nondisplaced intertrochanteric fracture of right femur, subsequent encounter for closed fracture with routine healing (principal); X58.XXXD Exposure to other specified factors, subsequent encounter | CPT/HCPCS: 73502; 99213 ==